=== PATIENT | male | born 1945 | race American Indian/Alaskan Native ===

== ENCOUNTER 2017-07-31 15:12 | Emergency (ER) | payer OTHER, MEDICARE ==
[2017-07-31 15:30] VITALS: BP 99/66
--- NOTE | 2017-07-31 16:01 | EDM.PDOC ---
Scribed by Marita Barlow 07/31/17 1601 for Vishnu Mckeon MD ED HPI GENERAL MEDICAL PROBLEM - General Chief Complaint: Medication Administration Stated Complaint: OUT OF MEDS, [facility] [id number] Time Seen by Provider: 07/31/17 15:48 Source of Information: Reports: Patient, RN, RN Notes Reviewed History Limitations: Reports: No Limitations - History of Present Illness INITIAL COMMENTS - FREE TEXT/NARRATIVE: Patient presents today with family due to being out of his digoxin for the last week. Reports [facility] the [facility] of his [facility] as he had a "twinge of pain" to his left chest this a.m. with associated dizziness. No pain at this time. He denies shortness of breath, nausea, dizziness or recent illness. Normally takes 125mcg of digoxin daily for this heart. Severity: Mild Improves with: Reports: None Worsens with: Reports: None Associated Symptoms: Reports: No Other Symptoms - Related Data Allergies Allergy/AdvReac Type Severity Reaction Status Date / Time amoxicillin Allergy unknown Verified 07/31/17 15:25 codeine Allergy unknown Verified 07/31/17 15:25 hydrocodone Allergy unknown Verified 07/31/17 15:25 Penicillins Allergy unknown Verified 07/31/17 15:25 Home Meds: Home Meds Digoxin [Digitek] 125 mcg PO DAILY 01/03/15 [History] Gabapentin [Neurontin] 300 mg PO TID 01/03/15 [History] Metoprolol Succinate 100 mg PO DAILY 01/03/15 [History] Multivitamin with Minerals [Multiple Vitamin] 1 tab PO DAILY 01/03/15 [History] Omeprazole 20 mg PO DAILY 01/03/15 [History] glipiZIDE [Glipizide ER] 10 mg PO BID 01/03/15 [History] Aspirin 325 mg PO DAILY 10/21/15 [History] Insulin Glargine,Hum.Rec.Anlog [Lantus Solostar] 52 unit SQ BEDTIME 10/21/15 [ History] atorvaSTATin Calcium [Atorvastatin Calcium] 20 mg PO BEDTIME 10/21/15 [History] Insulin Glarg,Human.Rec.Analog [LantUS Solostar] 10 units SUBCUT DAILY 10/23/15 [History] Levofloxacin 500 mg PO DAILY #10 tablet 10/26/15 [Rx] Past Medical History HEENT History: Reports: Hard of Hearing, Impaired Vision, Other (See Below) Cardiovascular History: Reports: Afib, High Cholesterol, Hypertension, PVD Gastrointestinal History: Reports: GERD Musculoskeletal History: Reports: Amputation, Fracture Neurological History: Reports: CVA Endocrine/Metabolic History: Reports: Diabetes, Type II, IDDM Dermatologic History: Reports: Decubitus Ulcer, Venous Stasis Dermatitis - Infectious Disease History Infectious Disease History: Reports: MRSA - Past Surgical History GI Surgical History: Reports: Cholecystectomy Social & Family History - Family History Cardiac: Reports: CAD, High Cholesterol, Heart Failure, Hypertension Respiratory: Reports: COPD GI: Reports: Cholelithiasis : Reports: Renal Disease/Insufficiency Musculoskeletal: Reports: Arthritis, Gout Neurological: Reports: CVA Endocrine/Metabolic: Reports: Diabetes, type II, Obesity/MBI 30+ - Tobacco Use Smoking Status *Q: Current Every Day Smoker Years of Tobacco use: 10 Packs/Tins Daily: 1 Second Hand Smoke Exposure: Yes - Caffeine Use Caffeine Use: Reports: Coffee, Soda - Alcohol Use Days Per Week of Alcohol Use: 0 - Recreational Drug Use Recreational Drug Use: No - Living Situation & Occupation Living situation: Reports: with Family, Occupation: Retired ED ROS GENERAL - Review of Systems Review Of Systems: ROS reveals no pertinent complaints other than HPI. ED EXAM, GENERAL - Physical Exam Exam: See Below Exam Limited By: No Limitations General Appearance: Alert, Other (orientated) Eye Exam: Bilateral Eye: Normal Inspection Ears: Normal External Exam, Normal Canal, Hearing Grossly Normal, Normal TMs Nose: Normal Inspection, Normal Mucosa, No Blood Throat/Mouth: Normal Inspection, Normal Lips, Normal Teeth, Normal Gums, Normal Oropharynx, Normal Voice, No Airway Compromise Head: Atraumatic, Normocephalic Neck: Normal Inspection, Supple, Non-Tender, Full Range of Motion Respiratory/Chest: Lungs Clear (bilaterally) Cardiovascular: Other (heart rate irregular) GI/Abdominal: Normal Bowel Sounds, Soft, Non-Tender, No Organomegaly, No Distention, No Abnormal Bruit, No Mass (Male) Exam: Deferred Rectal (Males) Exam: Deferred Back Exam: Normal Inspection, Full Range of Motion, NT Extremities: Normal Inspection, Normal Range of Motion, Non-Tender, Normal Capillary Refill, No Pedal Edema Neurological: Alert, Oriented, CN II-XII Intact, Normal Cognition, Normal Gait, Normal Reflexes, No Motor/Sensory Deficits Psychiatric: Normal Affect, Normal Mood Skin Exam: Warm, Dry, Intact, Normal Color, No Rash Lymphatic: No Adenopathy Course - Vital Signs Last Recorded V/S: Last Vital Signs Temp 37.1 C 07/31/17 15:26 Pulse 51 L 07/31/17 15:26 Resp 16 07/31/17 15:26 BP 99/66 07/31/17 15:26 Pulse Ox 99 07/31/17 15:26 Departure - Departure Time of Disposition: 15:54 Disposition: Home, Self-Care 01 Condition: Good Clinical Impression: Medication refill - Discharge Information Instructions: Medicine Refill at the Emergency Department, Atrial Fibrillation Forms: ED Department Discharge Additional Instructions: [facility] I have read and agree with the documentation that has been completed regarding this visit. By signing this record, I attest that the documentation was completed in my physical presence and is an accurate record of the encounter.
== END 2017-07-31 16:00 | disposition home or self-care (01) ==
LOC: DL.ED 15:12
DX: Z76.0 Encounter for issue of repeat prescription (principal); E78.00 Pure hypercholesterolemia, unspecified; I10 Essential (primary) hypertension; E11.9 Type 2 diabetes mellitus without complications; F17.210 Nicotine dependence, cigarettes, uncomplicated; Z88.1 Allergy status to other antibiotic agents; Z88.5 Allergy status to narcotic agent; Z88.0 Allergy status to penicillin; Z79.899 Other long term (current) drug therapy; Z79.4 Long term (current) use of insulin
CPT/HCPCS: 99282

== ENCOUNTER 2017-11-25 13:06 | Emergency (ER) | payer OTHER, MEDICARE ==
[2017-11-25 15:05] VITALS: BP 90/62
--- NOTE | 2017-11-25 16:03 | EDM.PDOC ---
Scribed by Marita Barlow 11/25/17 [id number] for Kal Tovar PA ED HPI GENERAL MEDICAL PROBLEM - General Chief Complaint: ENT Problem Stated Complaint: ? WOODTICK IN EAR Time Seen by Provider: 11/25/17 15:44 Source of Information: Reports: Patient, RN, RN Notes Reviewed History Limitations: Reports: No Limitations - History of Present Illness INITIAL COMMENTS - FREE TEXT/NARRATIVE: Patient presents to ER with a wood tick in his ear. He noticed it 2 days ago. It has become sore, so patient presented to ER to have it removed. Onset: Today Location: Reports: Other (ear) Quality: Reports: Ache Severity: Moderate Improves with: Reports: None Worsens with: Reports: None Associated Symptoms: Reports: No Other Symptoms Head Pain Score (Numeric/FACES): 10 - Related Data Allergies Allergy/AdvReac Type Severity Reaction Status Date / Time amoxicillin Allergy unknown Verified 11/25/17 14:59 codeine Allergy unknown Verified 11/25/17 14:59 hydrocodone Allergy unknown Verified 11/25/17 14:59 Penicillins Allergy unknown Verified 11/25/17 14:59 Home Meds: Home Meds Digoxin [Digitek] 125 mcg PO DAILY 01/03/15 [History] Gabapentin [Neurontin] 300 mg PO TID 01/03/15 [History] Metoprolol Succinate 100 mg PO DAILY 01/03/15 [History] Multivitamin with Minerals [Multiple Vitamin] 1 tab PO DAILY 01/03/15 [History] Omeprazole 20 mg PO DAILY 01/03/15 [History] glipiZIDE [Glipizide ER] 10 mg PO BID 01/03/15 [History] Aspirin 325 mg PO DAILY 10/21/15 [History] Insulin Glargine,Hum.Rec.Anlog [Lantus Solostar] 52 unit SQ BEDTIME 10/21/15 [ History] atorvaSTATin Calcium [Atorvastatin Calcium] 20 mg PO BEDTIME 10/21/15 [History] Insulin Glarg,Human.Rec.Analog [LantUS Solostar] 10 units SUBCUT DAILY 10/23/15 [History] Levofloxacin 500 mg PO DAILY #10 tablet 10/26/15 [Rx] Past Medical History HEENT History: Reports: Hard of Hearing, Impaired Vision, Other (See Below) Cardiovascular History: Reports: Afib, High Cholesterol, Hypertension, PVD Respiratory History: Reports: None Gastrointestinal History: Reports: GERD Genitourinary History: Reports: None Musculoskeletal History: Reports: Amputation, Fracture Neurological History: Reports: CVA Psychiatric History: Reports: None Endocrine/Metabolic History: Reports: Diabetes, Type II, IDDM Hematologic History: Reports: None Immunologic History: Reports: None Oncologic (Cancer) History: Reports: None Dermatologic History: Reports: Decubitus Ulcer, Venous Stasis Dermatitis - Infectious Disease History Infectious Disease History: Reports: MRSA - Past Surgical History Head Surgeries/Procedures: Reports: None GI Surgical History: Reports: Cholecystectomy Social & Family History - Family History Family Medical History: Noncontributory Cardiac: Reports: CAD, High Cholesterol, Heart Failure, Hypertension Respiratory: Reports: COPD GI: Reports: Cholelithiasis : Reports: Renal Disease/Insufficiency Musculoskeletal: Reports: Arthritis, Gout Neurological: Reports: CVA Endocrine/Metabolic: Reports: Diabetes, type II, Obesity/MBI 30+ - Tobacco Use Smoking Status *Q: Never Smoker Second Hand Smoke Exposure: No - Caffeine Use Caffeine Use: Reports: Coffee, Soda - Recreational Drug Use Recreational Drug Use: No - Living Situation & Occupation Living situation: Reports: with Family, Occupation: Retired ED ROS ENT - Review of Systems Review Of Systems: ROS reveals no pertinent complaints other than HPI. ED EXAM, ENT - Physical Exam Exam: See Below Exam Limited By: No Limitations General Appearance: Alert, WD/WN, No Apparent Distress Eye Exam: Bilateral Eye: Normal Inspection Ears: Other (wood tick, foreign body in left ear. ) Nose: Normal Inspection, Normal Mucousa, No Blood Mouth/Throat: Normal Inspection, Normal Gums, Normal Lips, Normal Oropharynx, Normal Teeth Head: Atraumatic, Normocephalic Neck: Normal Inspection, Supple, Non-Tender, Full Range of Motion Respiratory/Chest: No Respiratory Distress, Lungs Clear, Normal Breath Sounds, No Accessory Muscle Use, Chest Non-Tender Cardiovascular: Normal Peripheral Pulses, Regular Rate, Rhythm, No Edema, No Gallop, No JVD, No Murmur, No Rub GI/Abdominal: Normal Bowel Sounds, Soft, Non-Tender, No Organomegaly, No Distention, No Abnormal Bruit, No Mass (Male) Exam: Deferred Rectal (Males) Exam: Deferred Extremities: Normal Inspection, Normal Range of Motion, Non-Tender, No Pedal Edema, Normal Capillary Refill Neurological: Alert, Oriented, CN II-XII Intact, Normal Cognition, Normal Gait, Normal Reflexes, No Motor/Sensory Deficits Psychiatric: Normal Affect, Normal Mood Skin: Warm, Dry, Intact, Normal Color, No Rash Lymphatic: No Adenopathy Course - Vital Signs Last Recorded V/S: Last Vital Signs Temp 36.2 C 11/25/17 14:54 Pulse 61 11/25/17 14:54 Resp 18 11/25/17 14:54 BP 90/62 11/25/17 15:04 Pulse Ox 100 11/25/17 14:54 Departure - Departure Time of Disposition: 15:59 Disposition: Home, Self-Care 01 Condition: Fair Clinical Impression: Tick bite of left ear Qualifiers: Encounter type: initial encounter Qualified Code(s): S00.462A - Insect bite ( nonvenomous) of left ear, initial encounter; W57.XXXA - Bitten or stung by nonvenomous insect and other nonvenomous arthropods, initial encounter - Discharge Information Instructions: Tick Bite Information, Adult, [id number] Forms: ED Department Discharge Care Plan Goals: The patient was advised of the examination results during the visit. The tick was removed without incident. The patient was discharged with a script for Doxycycline (100 mg) #28 to take 1 by mouth 2 times per day for 14 days. If the patient has any additional symptoms or concerns, the patient should follow-up with his primary care facility or return to the emergency department. I have read and agree with the documentation that has been completed regarding this visit. By signing this record, I attest that the documentation was completed in my physical presence and is an accurate record of the encounter.
== END 2017-11-25 16:08 | disposition home or self-care (01) ==
LOC: DL.ED 13:06
DX: S00.462A Insect bite (nonvenomous) of left ear, initial encounter (principal); E78.00 Pure hypercholesterolemia, unspecified; I48.91 Unspecified atrial fibrillation; I10 Essential (primary) hypertension; K21.9 Gastro-esophageal reflux disease without esophagitis; E11.9 Type 2 diabetes mellitus without complications; Z88.1 Allergy status to other antibiotic agents; Z88.5 Allergy status to narcotic agent; Z88.0 Allergy status to penicillin; Z79.899 Other long term (current) drug therapy; Z79.82 Long term (current) use of aspirin; Z79.4 Long term (current) use of insulin; W57.XXXA Bitten or stung by nonvenomous insect and other nonvenomous arthropods, initial encounter
CPT/HCPCS: 99283

== ENCOUNTER 2019-07-25 12:16 | Emergency (ER) | payer MEDICARE, OTHER ==
[2019-07-25 12:19] VITALS: BP 83/63; PULSE 57
[2019-07-25 13:13] LABS: ANION GAP 11.5; CHLORIDE,CL 100 mmol/L (101-111); SODIUM,NA 133 mmol/L (135-145)
--- NOTE | 2019-07-25 14:16 | EDM.PDOC ---
Scribed by Marita Barlow 07/25/19 1416 for Pattie Connell NP ED HPI GENERAL MEDICAL PROBLEM - General Chief Complaint: General Stated Complaint: AMBULANCE Time Seen by Provider: 07/25/19 13:11 Source of Information: Reports: Patient, RN, RN Notes Reviewed History Limitations: Reports: No Limitations - History of Present Illness INITIAL COMMENTS - FREE TEXT/NARRATIVE: Patient is a 73-year-old gentleman who presents to ED by [facility] with weakness and fall. Patient reports he was dressing up this morning and fell. He denies hitting his head or having loss of consciousness. He also reports falling on the couch 2 hours before his ER visit. He reports that the weakness started 7 hours ago. He denies any fevers, chills, cough, or shortness of breath. He did have chest pain after he fell and then resolved. He denies any lower extremity edema. He has been taking his medications as prescribed. Onset: Today Duration: Getting Worse Location: Reports: Generalized Quality: Reports: Ache Severity: Moderate Improves with: Reports: None Worsens with: Reports: None Associated Symptoms: Reports: No Other Symptoms Right Flank Pain Score (Numeric/FACES): 6 - Related Data Allergies Allergy/AdvReac Type Severity Reaction Status Date / Time amoxicillin Allergy unknown Verified 07/25/19 12:19 codeine Allergy unknown Verified 07/25/19 12:19 hydrocodone Allergy unknown Verified 07/25/19 12:19 Penicillins Allergy unknown Verified 07/25/19 12:19 Home Meds: Home Meds Gabapentin [Neurontin] 300 mg PO BID 01/03/15 [History] Metoprolol Succinate 100 mg PO DAILY 01/03/15 [History] Multivitamin with Minerals [Multiple Vitamin] 1 tab PO DAILY 01/03/15 [History] Omeprazole 20 mg PO DAILY 01/03/15 [History] atorvaSTATin Calcium [Atorvastatin Calcium] 10 mg PO BEDTIME 10/21/15 [History] Apixaban [Eliquis] 5 mg PO BID 04/22/19 [History] Bacitracin/Neomycin/Polymyxin [Triple Antibiotic Oint] 1 applic TOP DAILY PRN [History] Gabapentin [Neurontin] 400 mg PO BEDTIME 04/22/19 [History] Aspirin [Adult Low Dose Aspirin EC] 81 mg PO DAILY 04/23/19 [History] Cefdinir 300 mg PO BID #10 capsule 04/24/19 [Rx] Digoxin [Digitek] 125 mcg PO DAILY 90 Days #90 tablet 04/24/19 [Rx] metFORMIN [Glucophage] 500 mg PO BIDMEALS #60 tab 04/24/19 [Rx] Past Medical History HEENT History: Reports: Hard of Hearing, Impaired Vision, Other (See Below) Cardiovascular History: Reports: Afib, High Cholesterol, Hypertension, [place], PVD Respiratory History: Reports: None Gastrointestinal History: Reports: GERD Genitourinary History: Reports: None Musculoskeletal History: Reports: Amputation, Fracture Neurological History: Reports: CVA Psychiatric History: Reports: None Endocrine/Metabolic History: Reports: Diabetes, Type II, IDDM Hematologic History: Reports: None Immunologic History: Reports: None Oncologic (Cancer) History: Reports: None Dermatologic History: Reports: Decubitus Ulcer, Venous Stasis Dermatitis - Infectious Disease History Infectious Disease History: Reports: Chicken Pox, Measles, MRSA - Past Surgical History Head Surgeries/Procedures: Reports: None GI Surgical History: Reports: Cholecystectomy Social & Family History - Family History Family Medical History: Noncontributory Cardiac: Reports: CAD, High Cholesterol, Heart Failure, Hypertension Respiratory: Reports: COPD GI: Reports: Cholelithiasis : Reports: Renal Disease/Insufficiency Musculoskeletal: Reports: Arthritis, Gout Neurological: Reports: CVA Endocrine/Metabolic: Reports: Diabetes, type II, Obesity/MBI 30+ - Tobacco Use Smoking Status *Q: Current Every Day Smoker Years of Tobacco use: 50 Packs/Tins Daily: 0.2 Second Hand Smoke Exposure: No - Caffeine Use Caffeine Use: Reports: Coffee - Recreational Drug Use Recreational Drug Use: No - Living Situation & Occupation Living situation: Reports: with Family, Occupation: Retired ED ROS GENERAL - Review of Systems Review Of Systems: Comprehensive ROS is negative, except as noted in HPI. ED EXAM, GENERAL - Physical Exam Exam: See Below Exam Limited By: No Limitations General Appearance: Alert, WD/WN, No Apparent Distress Eye Exam: Bilateral Eye: Normal Inspection Ears: Normal External Exam, Normal Canal, Hearing Grossly Normal, Normal TMs Nose: Normal Inspection, Normal Mucosa, No Blood Throat/Mouth: Normal Inspection, Normal Lips, Normal Teeth, Normal Gums, Normal Oropharynx, Normal Voice, No Airway Compromise, Other (dry mucus membranes) Head: Atraumatic, Normocephalic Neck: Normal Inspection, Supple, Non-Tender, Full Range of Motion Respiratory/Chest: No Respiratory Distress, No Accessory Muscle Use, Chest Non- Tender, Crackles (noted on the left lower lobe), Wheezing (mild expiratory) Cardiovascular: Normal Peripheral Pulses, Regular Rate, Rhythm, No Edema, No Gallop, No JVD, No Murmur, No Rub GI/Abdominal: Normal Bowel Sounds, Soft, Non-Tender, No Organomegaly, No Distention, No Abnormal Bruit, No Mass (Male) Exam: Deferred Rectal (Males) Exam: Deferred Back Exam: Normal Inspection Extremities: Other (bilateral above the knee amputation) Neurological: Alert, Oriented, CN II-XII Intact, Normal Cognition, Normal Gait, Normal Reflexes, No Motor/Sensory Deficits Psychiatric: Normal Affect, Normal Mood Skin Exam: Warm, Dry, Intact, Normal Color, No Rash Lymphatic: No Adenopathy EKG INTERPRETATION EKG Date: 07/25/19 Time: 12:28 Rhythm: Other (sinus bradycardia) Rate (Beats/Min): 59 EKG Interpretation Comments: EKG shows atrial premature complex. LAD, consider left anterior fascicular block. Late precordial R/S transition. Borderline T abnormalities, diffuse leads. Course - Vital Signs Last Recorded V/S: Last Vital Signs Temp 97.9 F 07/25/19 12:11 Pulse 57 L 07/25/19 12:11 Resp 20 07/25/19 12:11 BP 83/63 L 07/25/19 12:11 Pulse Ox 99 07/25/19 12:11 - Orders/Labs/Meds Orders: Active Orders 24 hr Category Date Time Status Blood Glucose Check, Bedside [RC] ONETIME Care 07/25/19 12:54 Active EKG Documentation Completion [RC] ROUTINE Care 07/25/19 12:54 Active UA RFX WALLY AND CULT IF INDIC [URIN] Urgent Lab 07/25/19 12:54 Ordered Labs: Laboratory Tests 07/25/19 07/25/19 Range/Units 12:46 12:46 WBC 9.6 (5.0-10.0) 10^3/uL RBC 4.19 L (4.6-6.2) 10^6/uL Hgb 12.2 L D (14.0-18.0) g/dL Hct 35.0 L (40.0-54.0) % MCV 83.5 (80-100) fL MCH 29.1 (27.0-34.0) pg MCHC 34.9 (33.0-35.0) g/dL Plt Count 181 D (150-450) 10^3/uL Neut % (Auto) 70.4 (42.2-75.2) % Lymph % (Auto) 20.5 (20.5-50.1) % Alfalfa % (Auto) 7.7 (2-8) % Eos % (Auto) 1.0 (1.0-3.0) % Baso % (Auto) 0.4 (0.0-1.0) % Sodium 133 L (135-145) mmol/L Potassium 3.5 L (3.6-5.0) mmol/L Chloride 100 L (101-111) mmol/L Carbon Dioxide 25.0 (21.0-31.0) mmol/L Anion Gap 11.5 BUN 11 (7-18) mg/dL Creatinine 0.6 (0.6-1.3) mg/dL Est Cr Clr Drug Dosing 97.03 mL/min Estimated GFR (MDRD) > 60 BUN/Creatinine Ratio 18.33 Glucose 365 H (74-105) mg/dL Calcium 8.8 (8.4-10.2) mg/dl Total Bilirubin 1.0 (0.2-1.0) mg/dL AST 27 (10-42) IU/L ALT 28 (10-60) IU/L Alkaline Phosphatase 120 (42-121) IU/L Troponin I 0.03 H* (0.00-0.02) ng/ml Total Protein 6.8 (6.7-8.2) g/dl Albumin 3.7 (3.2-5.5) g/dl Globulin 3.1 Albumin/Globulin Ratio 1.19 - Radiology Interpretation Free Text/Narrative:: Chest x-ray: No acute findings. See rad report. - Re-Assessments/Exams Free Text/Narrative Re-Assessment/Exam: Reviewed EKG and labs with patient. Consulted [facility] and Dr. Ordoñez accepted the patient for transfer. Patient transferred by ground ambulance. Departure - Departure Time of Disposition: 14:12 Disposition: DC/Tfer to 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 Diabetes mellitus complication status: with other specified complication Qualified Code(s): E11.69 - Type 2 diabetes mellitus with other specified complication - Discharge Information Referrals: PCP,Unobtain [Ordering Only Provider] - Forms: ED Department Discharge, Interfacility Transfer [facility] Sepsis Event Note - Evaluation Sepsis Screening Result: No Definite Risk - Focused Exam Vital Signs: Vital Signs Temp Pulse Resp BP Pulse Ox 07/25/19 12:11 97.9 F 57 L 20 83/63 L 99 Date Exam was Performed: 07/25/19 Time Exam was Performed: 14:15 - My Orders Last 24 Hours: My Active Orders 07/25/19 12:54 Blood Glucose Check, Bedside [RC] ONETIME EKG Documentation Completion [RC] ROUTINE UA RFX WALLY AND CULT IF INDIC [URIN] Urgent - Assessment/Plan Last 24 Hours: My Active Orders 07/25/19 12:54 Blood Glucose Check, Bedside [RC] ONETIME EKG Documentation Completion [RC] ROUTINE UA RFX WALLY AND CULT IF INDIC [URIN] Urgent I have read and agree with the documentation that has been completed regarding this visit. By signing this record, I attest that the documentation was completed in my physical presence and is an accurate record of the encounter.
== END 2019-07-25 14:26 ==
LOC: DL.ED 12:16
DX: I21.4 Non-ST elevation (NSTEMI) myocardial infarction (principal); E11.69 Type 2 diabetes mellitus with other specified complication; I10 Essential (primary) hypertension; E78.00 Pure hypercholesterolemia, unspecified; I48.91 Unspecified atrial fibrillation; K21.9 Gastro-esophageal reflux disease without esophagitis; Z86.73 Personal history of transient ischemic attack (TIA), and cerebral infarction without residual deficits; Z79.899 Other long term (current) drug therapy; Z79.82 Long term (current) use of aspirin; Z79.84 Long term (current) use of oral hypoglycemic drugs; Z88.5 Allergy status to narcotic agent; Z88.0 Allergy status to penicillin; Z88.6 Allergy status to analgesic agent; Z88.1 Allergy status to other antibiotic agents
CPT/HCPCS: 36415; 71046; 80053; 82962; 84484; 85025; 93005; 93010; 99285; 99285-25

== ENCOUNTER 2019-09-11 15:24 | Emergency (ER) | payer MEDICARE, OTHER ==
[2019-09-11] MEDS ORDERED: Sodium Chloride 0.9% 10 ML Syringe FLUSH PRN (15:37)
[2019-09-11] MEDS ORDERED: Ondansetron 4 MG/2 ML SDV IV ONE (15:39)
[2019-09-11] MEDS ORDERED: HYDROmorphone 1 MG/ML Syringe IVPUSH ONE (15:39)
[2019-09-11] MEDS ORDERED: Sodium Chloride 0.9% 500 ML IV SCH (15:45)
[2019-09-11 15:46] VITALS: BP 112/63; PULSE 68
[2019-09-11 16:40] LABS: ANION GAP 17.8 mEq/L (7-13); CHLORIDE,CL 101 mmol/L (98-107); SODIUM,NA 139 mmol/L (136-145)
[2019-09-11] MEDS ORDERED: diphenhydrAMINE 50 MG/ML SDV IVPUSH ONE (16:45)
[2019-09-11] MEDS ORDERED: Potassium Chloride 10 MEQ Tab.ER PO ONE (16:45)
[2019-09-11] MEDS ORDERED: Lidocaine 1% 30 ML SDV INJECT ONE (16:46)
[2019-09-11] MEDS ORDERED: Potassium Chloride 10 MEQ in Premix Bag 1 BAG IV ONE (16:46)
[2019-09-11] MEDS ORDERED: HYDROmorphone 0.5 MG/0.5 ML Syringe IVPUSH ONE (17:00)
--- NOTE | 2019-09-11 17:16 | EDM.PDOC ---
Scribed by Marita Barlow 09/11/19 8811 for Vishnu Mckeon MD ED HPI GENERAL MEDICAL PROBLEM - General Chief Complaint: Lower Extremity Injury/Pain Stated Complaint: UNKNOWN- AMBULANCE Time Seen by Provider: 09/11/19 15:30 Source of Information: Reports: Patient, EMS, EMS Notes Reviewed, RN, RN Notes Reviewed History Limitations: Reports: No Limitations - History of Present Illness INITIAL COMMENTS - FREE TEXT/NARRATIVE: Patient presents by [facility] with complaint of pain and redness to his right lower extremity stump worsening over the past several days. Denies fevers, nausea or vomiting. Pt admits to pain in the RUQ abdomen which is chronic/recurring and has been attributed to gallbladder disease, but he states that is not why he is in the ER today. Denies chest pain, shortness of breath, cough, nausea, diarrhea, or fever. Denies recent travel. Denies exposure to confirmed or suspected COVID-19 cases. Onset: Gradual Duration: Getting Worse Location: Reports: Lower Extremity, Right Quality: Reports: Ache Severity: Moderate Improves with: Reports: None Worsens with: Reports: None Associated Symptoms: Reports: No Other Symptoms Right Upper Abdomen Pain Score (Numeric/FACES): 7 Right Stump Pain Score (Numeric/FACES): 7 - Related Data Allergies Allergy/AdvReac Type Severity Reaction Status Date / Time amoxicillin Allergy unknown Verified 07/25/19 12:19 codeine Allergy unknown Verified 07/25/19 12:19 hydrocodone Allergy unknown Verified 07/25/19 12:19 Penicillins Allergy unknown Verified 07/25/19 12:19 Home Meds: Home Meds Gabapentin [Neurontin] 300 mg PO BID 01/03/15 [History] Metoprolol Succinate 100 mg PO DAILY 01/03/15 [History] Multivitamin with Minerals [Multiple Vitamin] 1 tab PO DAILY 01/03/15 [History] Omeprazole 20 mg PO DAILY 01/03/15 [History] atorvaSTATin Calcium [Atorvastatin Calcium] 10 mg PO BEDTIME 10/21/15 [History] Apixaban [Eliquis] 5 mg PO BID 04/22/19 [History] Bacitracin/Neomycin/Polymyxin [Triple Antibiotic Oint] 1 applic TOP DAILY PRN [History] Gabapentin [Neurontin] 400 mg PO BEDTIME 04/22/19 [History] Aspirin [Adult Low Dose Aspirin EC] 81 mg PO DAILY 04/23/19 [History] Cefdinir 300 mg PO BID #10 capsule 04/24/19 [Rx] Digoxin [Digitek] 125 mcg PO DAILY 90 Days #90 tablet 04/24/19 [Rx] metFORMIN [Glucophage] 500 mg PO BIDMEALS #60 tab 04/24/19 [Rx] Past Medical History HEENT History: Reports: Hard of Hearing, Impaired Vision, Other (See Below) Cardiovascular History: Reports: Afib, High Cholesterol, Hypertension, [place], PVD Respiratory History: Reports: None Gastrointestinal History: Reports: GERD Genitourinary History: Reports: None Musculoskeletal History: Reports: Amputation, Fracture Neurological History: Reports: CVA Psychiatric History: Reports: None Endocrine/Metabolic History: Reports: Diabetes, Type II, IDDM Hematologic History: Reports: None Immunologic History: Reports: None Oncologic (Cancer) History: Reports: None Dermatologic History: Reports: Decubitus Ulcer, Venous Stasis Dermatitis - Infectious Disease History Infectious Disease History: Reports: Chicken Pox, Measles, MRSA - Past Surgical History Head Surgeries/Procedures: Reports: None GI Surgical History: Reports: Cholecystectomy Social & Family History - Family History Family Medical History: Noncontributory Cardiac: Reports: CAD, High Cholesterol, Heart Failure, Hypertension Respiratory: Reports: COPD GI: Reports: Cholelithiasis : Reports: Renal Disease/Insufficiency Musculoskeletal: Reports: Arthritis, Gout Neurological: Reports: CVA Endocrine/Metabolic: Reports: Diabetes, type II, Obesity/MBI 30+ - Caffeine Use Caffeine Use: Reports: Coffee, Soda - Living Situation & Occupation Living situation: Reports: with Family, Occupation: Retired Review of Systems - Review of Systems Review Of Systems: Comprehensive ROS is negative, except as noted in HPI. ED EXAM, GENERAL - Physical Exam Exam: See Below Exam Limited By: No Limitations General Appearance: Alert, No Apparent Distress, Anxious, Thin, Other ( Chronically ill appearing) Eye Exam: Bilateral Eye: Normal Inspection (chronic vision impairment) Ears: Hearing Grossly Normal Nose: Normal Inspection, No Blood Throat/Mouth: Normal Inspection, Normal Lips, Normal Voice, No Airway Compromise Head: Atraumatic, Normocephalic Neck: Normal Inspection, Full Range of Motion Respiratory/Chest: No Respiratory Distress, Lungs Clear, No Accessory Muscle Use , Chest Non-Tender, Decreased Breath Sounds Cardiovascular: Regular Rate, Rhythm GI/Abdominal: Normal Bowel Sounds, Soft, No Organomegaly, No Distention, Tender (RUQ, chronic/stable per pt). No: Guarding, Rigid, Rebound Back Exam: CVA Tenderness (R), Decreased Range of Motion (Chronic), Paraspinal Tenderness (Right). No: CVA Tenderness (L), Vertebral Tenderness Extremities: Other (B/L BKA. Right stump acutely tender, with dry eschar 2cm diameter at distat (apex) of stump with 18cm of erythema at anterior, medial and lateral stump, no swelling of knee.) Neurological: Alert, Oriented, No Motor/Sensory Deficits Psychiatric: Anxious Skin Exam: Dry, Erythema (Rt LE stump), Increased Warmth (Rt LE stump with acute tenderness) Course - Vital Signs Last Recorded V/S: Last Vital Signs Temp 97 F 09/11/19 15:24 Pulse 68 09/11/19 15:24 Resp 20 09/11/19 15:24 BP 112/63 09/11/19 15:24 Pulse Ox 100 09/11/19 15:24 - Orders/Labs/Meds Orders: Active Orders 24 hr Category Date Time Status Peripheral IV Care [RC] . DIRECTED Care 09/11/19 15:38 Active CULTURE BLOOD [BC] Stat Lab 09/11/19 15:52 Received CULTURE BLOOD [BC] Stat Lab 09/11/19 16:00 Results UA RFX WALLY AND CULT IF INDIC [URIN] Routine Lab 09/11/19 15:47 Ordered Potassium Chloride [KCl 10 MEQ in Water 100 ML] 10 meq Med 09/11/19 16:46 Active Premix Bag 1 bag IV ONETIME Sodium Chloride 0.9% [Normal Saline] 500 ml Med 09/11/19 15:45 Active IV .BOLUS Sodium Chloride 0.9% [Saline Flush] Med 09/11/19 15:37 Active 10 ml FLUSH ASDIRECTED PRN Vancomycin 1 gm Med 09/11/19 16:45 Active Sodium Chloride 0.9% [Normal Saline] 250 ml IV ONETIME Blood Culture x2 Reflex Set [OM.PC] Stat Oth 09/11/19 15:37 Ordered Peripheral IV Insertion Adult [OM.PC] Stat Oth 09/11/19 15:37 Ordered Medication Orders Sodium Chloride (Normal Saline) 500 mls @ 500 mls/hr IV .BOLUS JOSE A Last Admin: 09/11/19 15:49 Dose: 500 mls/hr Vancomycin HCl 1 gm/ Sodium (Chloride) 250 mls @ 167 mls/hr IV ONETIME ONE Stop: 09/11/19 18:14 Potassium Chloride 10 meq/ (Premix) 100 mls @ 100 mls/hr IV ONETIME ONE Stop: 09/11/19 17:45 Sodium Chloride (Saline Flush) 10 ml FLUSH ASDIRECTED PRN PRN Reason: Keep Vein Open Last Admin: 09/11/19 15:49 Dose: 10 ml Labs: Laboratory Tests 09/11/19 09/11/19 09/11/19 Range/Units 15:52 15:52 15:52 WBC 18.8 H (5.0-10.0) 10^3/uL RBC 4.29 L (4.6-6.2) 10^6/uL Hgb 12.5 L (14.0-18.0) g/dL Hct 36.6 L (40.0-54.0) % MCV 85.3 (80-100) fL MCH 29.1 (27.0-34.0) pg MCHC 34.2 (33.0-35.0) g/dL Plt Count 191 (150-450) 10^3/uL Neut % (Auto) 85.5 H (42.2-75.2) % Lymph % (Auto) 6.5 L (20.5-50.1) % [place] % (Auto) 7.5 (2-8) % Eos % (Auto) 0.3 L (1.0-3.0) % Baso % (Auto) 0.2 (0.0-1.0) % Sodium 139 (136-145) mmol/L Potassium 2.8 L (3.5-5.1) mmol/L Chloride 101 (98-107) mmol/L Carbon Dioxide 23 (21-32) mmol/L Anion Gap 17.8 H (7-13) mEq/L BUN 16 (7-18) mg/dL Creatinine 0.74 (0.70-1.30) mg/dL Est Cr Clr Drug Dosing 71.38 mL/min Estimated GFR (MDRD) > 60 BUN/Creatinine Ratio 21.6 (No establ ref range) Glucose 184 H (74-99) mg/dL Lactic Acid 1.2 (0.4-2.0) mmol/L Calcium 8.4 L (8.5-10.1) mg/dL Total Bilirubin 1.5 H (0.2-1.0) mg/dL AST 20 (15-37) U/L ALT 27 (16-63) U/L Alkaline Phosphatase 99 (46-116) U/L C-Reactive Protein 16.7 H (0.0-0.9) mg/dL Total Protein 7.3 (6.4-8.2) g/dL Albumin 3.1 L (3.4-5.0) g/dL Globulin 4.2 Albumin/Globulin Ratio 0.74 Digoxin (0.9-2.0) ng/mL Ketones 09/11/19 09/11/19 Range/Units 15:52 15:52 WBC (5.0-10.0) 10^3/uL RBC (4.6-6.2) 10^6/uL Hgb (14.0-18.0) g/dL Hct (40.0-54.0) % MCV (80-100) fL MCH (27.0-34.0) pg MCHC (33.0-35.0) g/dL Plt Count (150-450) 10^3/uL Neut % (Auto) (42.2-75.2) % Lymph % (Auto) (20.5-50.1) % [place] % (Auto) (2-8) % Eos % (Auto) (1.0-3.0) % Baso % (Auto) (0.0-1.0) % Sodium (136-145) mmol/L Potassium (3.5-5.1) mmol/L Chloride (98-107) mmol/L Carbon Dioxide (21-32) mmol/L Anion Gap (7-13) mEq/L BUN (7-18) mg/dL Creatinine (0.70-1.30) mg/dL Est Cr Clr Drug Dosing mL/min Estimated GFR (MDRD) BUN/Creatinine Ratio (No establ ref range) Glucose (74-99) mg/dL Lactic Acid (0.4-2.0) mmol/L Calcium (8.5-10.1) mg/dL Total Bilirubin (0.2-1.0) mg/dL AST (15-37) U/L ALT (16-63) U/L Alkaline Phosphatase (46-116) U/L C-Reactive Protein (0.0-0.9) mg/dL Total Protein (6.4-8.2) g/dL Albumin (3.4-5.0) g/dL Globulin Albumin/Globulin Ratio Digoxin 1.5 (0.9-2.0) ng/mL Ketones Negative Meds: Medications Generic Name Dose Route Start Last Admin Trade Name Freq PRN Reason Stop Dose Admin Sodium Chloride 500 mls @ 500 mls/hr 09/11/19 15:45 09/11/19 15:49 Normal Saline IV 500 mls/hr .BOLUS JOSE A Administration Vancomycin HCl 1 gm/ Sodium 250 mls @ 167 mls/hr 09/11/19 16:45 Chloride IV 09/11/19 18:14 ONETIME ONE Potassium Chloride 10 meq/ 100 mls @ 100 mls/hr 09/11/19 16:46 Premix IV 09/11/19 17:45 ONETIME ONE Sodium Chloride 10 ml 09/11/19 15:37 09/11/19 15:49 Saline Flush FLUSH 10 ml ASDIRECTED PRN Administration Keep Vein Open Discontinued Medications Generic Name Dose Route Start Last Admin Trade Name Richard PRN Reason Stop Dose Admin Diphenhydramine HCl 25 mg 09/11/19 16:45 Benadryl IVPUSH 09/11/19 16:46 ONETIME ONE Hydromorphone HCl 1 mg 09/11/19 15:39 09/11/19 15:46 Dilaudid IVPUSH 09/11/19 15:40 1 mg ONETIME ONE Administration Hydromorphone HCl 0.5 mg 09/11/19 17:00 Dilaudid IVPUSH 09/11/19 17:01 ONETIME ONE Lidocaine HCl 1 ml 09/11/19 16:46 Xylocaine-Mpf 1% INJECT 09/11/19 16:47 ONETIME ONE Ondansetron HCl 4 mg 09/11/19 15:39 09/11/19 15:47 Zofran IV 09/11/19 15:40 4 mg ONETIME ONE Administration Potassium Chloride 40 meq 09/11/19 16:45 Klor-Con 10 PO 09/11/19 16:46 ONETIME ONE - Re-Assessments/Exams Free Text/Narrative Re-Assessment/Exam: 09/11/19 17:14 *Negative Covid screen* Free Text/Narrative Re-Assessment/Exam: 09/11/19 I explained the exam and diagnostic findings with the pt, and recommended admission. Pt states he is a DC pt and wishes to be transferred to [facility]. Pt is kindly accepted by Dr. Longoria. Departure - Departure Time of Disposition: 17:07 Disposition: DC/Tfer to Acute Hospital 02 Condition: Fair, Serious Clinical Impression: Cellulitis of right lower limb, Infection of amputation stump, right lower extremity, Hypokalemia, History of below-knee amputation of both lower extremities, Abdominal pain, chronic, right upper quadrant - Discharge Information *PRESCRIPTION DRUG MONITORING PROGRAM REVIEWED*: Not Applicable *COPY OF PRESCRIPTION DRUG MONITORING REPORT IN PATIENT MALI: Not Applicable Forms: ED Department Discharge, Interfacility Transfer EMTALA Sepsis Event Note - Focused Exam Vital Signs: Vital Signs Temp Pulse Resp BP Pulse Ox 09/11/19 15:24 97 F 68 20 112/63 100 Date Exam was Performed: 09/11/19 Time Exam was Performed: 17:07 - My Orders Last 24 Hours: My Active Orders 09/11/19 15:37 Sodium Chloride 0.9% [Saline Flush] 10 ml FLUSH ASDIRECTED PRN Blood Culture x2 Reflex Set [OM.PC] Stat Peripheral IV Insertion Adult [OM.PC] Stat 09/11/19 15:38 Peripheral IV Care [RC] . DIRECTED 09/11/19 15:45 Sodium Chloride 0.9% [Normal Saline] 500 ml IV .BOLUS 09/11/19 15:47 UA RFX WALLY AND CULT IF INDIC [URIN] Routine 09/11/19 15:52 CULTURE BLOOD [BC] Stat 09/11/19 16:00 CULTURE BLOOD [BC] Stat 09/11/19 16:45 Vancomycin 1 gm Sodium Chloride 0.9% [Normal Saline] 250 ml IV ONETIME 09/11/19 16:46 Potassium Chloride [KCl 10 MEQ in Water 100 ML] 10 meq Premix Bag 1 bag IV ONETIME - Assessment/Plan Last 24 Hours: My Active Orders 09/11/19 15:37 Sodium Chloride 0.9% [Saline Flush] 10 ml FLUSH ASDIRECTED PRN Blood Culture x2 Reflex Set [OM.PC] Stat Peripheral IV Insertion Adult [OM.PC] Stat 09/11/19 15:38 Peripheral IV Care [RC] . DIRECTED 09/11/19 15:45 Sodium Chloride 0.9% [Normal Saline] 500 ml IV .BOLUS 09/11/19 15:47 UA RFX WALLY AND CULT IF INDIC [URIN] Routine 09/11/19 15:52 CULTURE BLOOD [BC] Stat 09/11/19 16:00 CULTURE BLOOD [BC] Stat 09/11/19 16:45 Vancomycin 1 gm Sodium Chloride 0.9% [Normal Saline] 250 ml IV ONETIME 09/11/19 16:46 Potassium Chloride [KCl 10 MEQ in Water 100 ML] 10 meq Premix Bag 1 bag IV ONETIME I have read and agree with the documentation that has been completed regarding this visit. By signing this record, I attest that the documentation was completed in my physical presence and is an accurate record of the encounter.
== END 2019-09-11 17:45 ==
LOC: DL.ED 15:24
DX: T87.43 Infection of amputation stump, right lower extremity (principal); L03.115 Cellulitis of right lower limb; R10.11 Right upper quadrant pain; E87.6 Hypokalemia; Z89.512 Acquired absence of left leg below knee; Z89.511 Acquired absence of right leg below knee; I10 Essential (primary) hypertension; E11.9 Type 2 diabetes mellitus without complications; I48.91 Unspecified atrial fibrillation; E78.00 Pure hypercholesterolemia, unspecified; I25.2 Old myocardial infarction; K21.9 Gastro-esophageal reflux disease without esophagitis; Z86.73 Personal history of transient ischemic attack (TIA), and cerebral infarction without residual deficits; Z88.1 Allergy status to other antibiotic agents; Z88.5 Allergy status to narcotic agent; Z79.899 Other long term (current) drug therapy; Z79.82 Long term (current) use of aspirin; Z79.01 Long term (current) use of anticoagulants; Z79.84 Long term (current) use of oral hypoglycemic drugs
CPT/HCPCS: 36415; 80053; 80162; 82009; 83605; 85025; 86140; 87040; 96361; 96365; 96368; 96375; 96376; 99284; 99285-25; A9270-GY; J1170; J1200; J2405; J3370; J3480; J7040; J7050

== ENCOUNTER 2020-02-20 14:39 | Emergency (ER) | payer MEDICARE, MEDICAID ==
[2020-02-20 15:38] VITALS: BP 120/49; PULSE 82
[2020-02-20 17:07] LABS: ANION GAP 13.4 mEq/L (7-13); CHLORIDE,CL 104 mmol/L (98-107); SODIUM,NA 139 mmol/L (136-145)
[2020-02-20] MEDS ORDERED: Levofloxacin 500 MG Tab PO ONE (17:32)
--- NOTE | 2020-02-20 17:36 | EDM.PDOC ---
Scribed by Marita Barlow 02/20/20 8620 for Praveena Zaragoza MD ED HPI GENERAL MEDICAL PROBLEM - General Chief Complaint: Genitourinary Problem Stated Complaint: POSSIBLE BLADDER INFECTION Time Seen by Provider: 02/20/20 15:44 Source of Information: Reports: Patient, RN, RN Notes Reviewed History Limitations: Reports: No Limitations - History of Present Illness INITIAL COMMENTS - FREE TEXT/NARRATIVE: Patient presents to ED stating he has had burning with urination for 3 weeks and the last 3 days urine has been red. States he just got off an antibiotic for a UTI. He is prone to frequent UTIs. No fevers or chills. He used to be on Gabapentin in the past but his neighbors were stealing it so he ask his physician not to refill. His sister and a nephew are taking care of him. He also has 2 health nurses coming in and doing his medications. Onset: Gradual Duration: Getting Worse Location: Reports: Other (urinary symptoms) Quality: Reports: Ache Severity: Moderate Improves with: Reports: None Worsens with: Reports: None Associated Symptoms: Reports: No Other Symptoms - Related Data Allergies Allergy/AdvReac Type Severity Reaction Status Date / Time amoxicillin Allergy unknown Verified 02/20/20 15:37 codeine Allergy unknown Verified 02/20/20 15:37 hydrocodone Allergy unknown Verified 02/20/20 15:37 Penicillins Allergy unknown Verified 02/20/20 15:37 Home Meds: Home Meds Gabapentin [Neurontin] 300 mg PO BID 01/03/15 [History] Metoprolol Succinate 100 mg PO DAILY 01/03/15 [History] Multivitamin with Minerals [Multiple Vitamin] 1 tab PO DAILY 01/03/15 [History] Omeprazole 20 mg PO DAILY 01/03/15 [History] atorvaSTATin Calcium [Atorvastatin Calcium] 10 mg PO BEDTIME 10/21/15 [History] Apixaban [Eliquis] 5 mg PO BID 04/22/19 [History] Bacitracin/Neomycin/Polymyxin [Triple Antibiotic Oint] 1 applic TOP DAILY PRN 04/22/19 [History] Gabapentin [Neurontin] 400 mg PO BEDTIME 04/22/19 [History] Aspirin [Adult Low Dose Aspirin EC] 81 mg PO DAILY 04/23/19 [History] Cefdinir 300 mg PO BID #10 capsule 04/24/19 [Rx] Digoxin [Digitek] 125 mcg PO DAILY 90 Days #90 tablet 04/24/19 [Rx] metFORMIN [Glucophage] 500 mg PO BIDMEALS #60 tab 04/24/19 [Rx] Past Medical History HEENT History: Reports: Hard of Hearing, Impaired Vision, Other (See Below) Cardiovascular History: Reports: Afib, High Cholesterol, Hypertension, [place], PVD Respiratory History: Reports: None Gastrointestinal History: Reports: GERD Genitourinary History: Reports: None Musculoskeletal History: Reports: Amputation, Fracture Neurological History: Reports: CVA Psychiatric History: Reports: None Endocrine/Metabolic History: Reports: Diabetes, Type II, IDDM Hematologic History: Reports: None Immunologic History: Reports: None Oncologic (Cancer) History: Reports: None Dermatologic History: Reports: Decubitus Ulcer, Venous Stasis Dermatitis - Infectious Disease History Infectious Disease History: Reports: Chicken Pox, Measles, MRSA - Past Surgical History Head Surgeries/Procedures: Reports: None GI Surgical History: Reports: Cholecystectomy Social & Family History - Family History Family Medical History: Noncontributory Cardiac: Reports: CAD, High Cholesterol, Heart Failure, Hypertension Respiratory: Reports: COPD GI: Reports: Cholelithiasis : Reports: Renal Disease/Insufficiency Musculoskeletal: Reports: Arthritis, Gout Neurological: Reports: CVA Endocrine/Metabolic: Reports: Diabetes, type II, Obesity/MBI 30+ - Caffeine Use Caffeine Use: Reports: Coffee, Soda - Living Situation & Occupation Living situation: Reports: with Family, Occupation: Retired ED ROS GENERAL - Review of Systems Review Of Systems: Comprehensive ROS is negative, except as noted in HPI. ED EXAM, RENAL/ - Physical Exam Exam: See Below Exam Limited By: No Limitations General Appearance: Alert, WD/WN, No Apparent Distress Eye Exam: Bilateral Eye: EOMI, Normal Inspection, PERRL Ears: Normal External Exam, Normal Canal, Hearing Grossly Normal, Normal TMs Nose: Normal Inspection, Normal Mucosa, No Blood Throat/Mouth: Normal Inspection, Normal Lips, Normal Teeth, Normal Gums, Normal Oropharynx, Normal Voice, No Airway Compromise Head: Atraumatic, Normocephalic Neck: Normal Inspection, Supple, Non-Tender, Full Range of Motion Respiratory/Chest: No Respiratory Distress, Lungs Clear, Normal Breath Sounds, No Accessory Muscle Use, Chest Non-Tender Cardiovascular: Normal Peripheral Pulses, Regular Rate, Rhythm, No Edema, No Gallop, No JVD, No Murmur, No Rub GI/Abdominal: Normal Bowel Sounds, Soft, Non-Tender, No Organomegaly, No Distention, No Abnormal Bruit, No Mass (Male) Exam: Rash (shelley) Rectal (Males) Exam: Deferred Back Exam: Normal Inspection, Full Range of Motion, NT Extremities: Other (bilateral leg amputations. ) Neurological: Alert, Oriented, CN II-XII Intact, Normal Cognition, Normal Gait, Normal Reflexes, No Motor/Sensory Deficits Psychiatric: Normal Affect, Normal Mood Skin Exam: Warm, Dry, Intact, Normal Color, No Rash Course - Vital Signs Last Recorded V/S: Last Vital Signs Temp 97.9 F 02/20/20 15:36 Pulse 82 02/20/20 15:36 Resp 18 02/20/20 15:36 BP 120/49 L 02/20/20 15:36 Pulse Ox 98 02/20/20 15:36 - Orders/Labs/Meds Orders: Active Orders 24 hr Category Date Time Status CULTURE URINE [RM] Stat Lab 02/20/20 16:24 Received Labs: Laboratory Tests 02/20/20 02/20/20 02/20/20 Range/Units 16:24 16:42 16:42 WBC 8.9 (5.0-10.0) 10^3/uL RBC 4.63 (4.6-6.2) 10^6/uL Hgb 13.0 L (14.0-18.0) g/dL Hct 38.7 L (40.0-54.0) % MCV 83.6 (80-100) fL MCH 28.1 (27.0-34.0) pg MCHC 33.6 (33.0-35.0) g/dL Plt Count 240 (150-450) 10^3/uL Neut % (Auto) 69.0 (42.2-75.2) % Lymph % (Auto) 20.8 (20.5-50.1) % [place] % (Auto) 9.4 H (2-8) % Eos % (Auto) 0.4 L (1.0-3.0) % Baso % (Auto) 0.4 (0.0-1.0) % Sodium 139 (136-145) mmol/L Potassium 4.4 D (3.5-5.1) mmol/L Chloride 104 (98-107) mmol/L Carbon Dioxide 26 (21-32) mmol/L Anion Gap 13.4 H (7-13) mEq/L BUN 28 H (7-18) mg/dL Creatinine 0.77 (0.70-1.30) mg/dL Est Cr Clr Drug Dosing 65.34 mL/min Estimated GFR (MDRD) > 60 BUN/Creatinine Ratio 36.4 (No establ ref range) Glucose 112 H (74-99) mg/dL Calcium 8.7 (8.5-10.1) mg/dL Total Bilirubin 0.9 (0.2-1.0) mg/dL AST 72 H (15-37) U/L ALT 75 H (16-63) U/L Alkaline Phosphatase 95 (46-116) U/L Total Protein 7.4 (6.4-8.2) g/dL Albumin 3.3 L (3.4-5.0) g/dL Globulin 4.1 Albumin/Globulin Ratio 0.80 Urine Color [place] (YELLOW) Urine Appearance Turbid (CLEAR) Urine pH 5.5 (5.0-9.0) Ur Specific [place] 1.025 (1.005-1.030) Urine Protein >=300 H (NEGATIVE) Urine Glucose (UA) 500 H (NEGATIVE) Urine Ketones 40 H (NEGATIVE) Urine Occult Blood Large H (NEGATIVE) Urine Nitrite Positive H (NEGATIVE) Urine Bilirubin Small H (NEGATIVE) Urine Urobilinogen 2.0 H (0.2-1.0) mg/dL Ur Leukocyte Esterase Trace H (NEGATIVE) Urine RBC >100 H /HPF Urine WBC >100 H (0-5/HPF) /HPF Ur Epithelial Cells Few (NOT SEEN) /HPF Amorphous Sediment Moderate (NOT SEEN) /HPF Urine Bacteria Many H (0-FEW/HPF) /HPF Urine Mucus Many H (NOT SEEN) /LPF Meds: Medications Discontinued Medications Generic Name Dose Route Start Last Admin Trade Name Freq PRN Reason Stop Dose Admin Levofloxacin 500 mg 02/20/20 17:32 Levaquin PO 02/20/20 17:33 ONETIME ONE Departure - Departure Time of Disposition: 17:33 Disposition: Home, Self-Care 01 Condition: Good Clinical Impression: UTI (urinary tract infection) Qualifiers: Urinary tract infection type: acute cystitis Hematuria presence: with hematuria Qualified Code(s): N30.01 - Acute cystitis with hematuria - Discharge Information *PRESCRIPTION DRUG MONITORING PROGRAM REVIEWED*: Not Applicable *COPY OF PRESCRIPTION DRUG MONITORING REPORT IN PATIENT MALI: Not Applicable Instructions: Urinary Tract Infection, Adult, [id number] Forms: ED Department Discharge Sepsis Event Note (ED) - Evaluation Sepsis Screening Result: No Definite Risk - Focused Exam Vital Signs: Vital Signs Temp Pulse Resp BP Pulse Ox 02/20/20 15:36 97.9 F 82 18 120/49 L 98 - My Orders Last 24 Hours: My Active Orders 02/20/20 16:24 CULTURE URINE [RM] Stat - Assessment/Plan Last 24 Hours: My Active Orders 02/20/20 16:24 CULTURE URINE [RM] Stat Assessment:: 74 yo male with UTI Plan: pt prefers once daily antibiotic levaquin does in the ER Rx for levaquin 500mg daily reviewed reasons to call/return to the clinic fu with PCP 3-5 days I have read and agree with the documentation that has been completed regarding this visit. By signing this record, I attest that the documentation was completed in my physical presence and is an accurate record of the encounter.
== END 2020-02-20 17:58 | disposition home or self-care (01) ==
LOC: DL.ED 14:39
DX: N30.01 Acute cystitis with hematuria (principal); I10 Essential (primary) hypertension; I25.2 Old myocardial infarction; E11.51 Type 2 diabetes mellitus with diabetic peripheral angiopathy without gangrene; I48.91 Unspecified atrial fibrillation; K21.9 Gastro-esophageal reflux disease without esophagitis; B37.9 Candidiasis, unspecified; Z88.0 Allergy status to penicillin; Z88.1 Allergy status to other antibiotic agents; Z88.5 Allergy status to narcotic agent; Z89.612 Acquired absence of left leg above knee; Z89.611 Acquired absence of right leg above knee; Z79.899 Other long term (current) drug therapy; Z79.82 Long term (current) use of aspirin; Z79.01 Long term (current) use of anticoagulants; Z86.73 Personal history of transient ischemic attack (TIA), and cerebral infarction without residual deficits
CPT/HCPCS: 36415; 80053; 81001; 85025; 87086; 87088; 87186; 99283; A9270